=== PATIENT | female | born 1945 | race Caucasian/White ===

== ENCOUNTER → 2024-01-31 09:22 | Outpatient (REF) | payer MEDICARE, SELFPAY | LOC: RAD 09:22 | PROVIDERS: ATTENDING PHYSICIAN Orthopaedic Surgery; FAMILY PHYSICIAN Internal Medicine; OTHER PHYSICIAN Orthopaedic Surgery; REFERRING PHYSICIAN Internal Medicine Rheumatology | DX: M81.0 Age-related osteoporosis without current pathological fracture (principal); Z78.0 Asymptomatic menopausal state | CPT/HCPCS: 77080 ==

== ENCOUNTER 2025-01-20 08:04 | Inpatient (IN) | payer MEDICARE, SELFPAY ==
[2025-01-18 09:59] VITALS: BP 155/70
[2025-01-18 11:40] LABS: Hematocrit 41.1 % (37.0-47.0); Hemoglobin 13.3 g/dL (12.0-16.0); Mean Corp Hgb Conc. 32.4 g/dL (33.0-37.0); Mean Corpuscular Volume 80.3 fL (81.0-99.0); Nucleated Red Blood Cells % 0 %; Platelet Count 295 10^3/uL (130-400); Red Cell Dist. Width 14.3 % (11.5-14.5)
[2025-01-18] MEDS: DILAUDID 0.25 MG IV ×3 (11:44→22:24)
[2025-01-18] MEDS: TORADOL 15 MG IV (11:45)
[2025-01-18] MEDS: NSS 500 IV (11:45)
[2025-01-18 11:59] LABS: Blood Urea Nitrogen 16 mg/dl (7-17); Calcium 9.6 mg/dl (8.4-10.2); Carbon Dioxide 24 mmol/L (22-30); Chloride 107 mmol/L (98-107); Glucose 108 mg/dl (70-99); Potassium 3.4 mmol/L (3.5-5.1); Sodium 139 mmol/L (135-145); eGFR > 60.00
--- NOTE | 2025-01-18 12:02 | ED.GENMED ---
History of Present Illness
General
Chief Complaint: Musculo-Skeletal Complaint
Source: patient
Exam Limitations: none
Time Seen by Provider: 01/18/25 10:59
History of Present Illness
History of Present Illness:
80-year-old female complaining of right leg pain. Some low back pain and buttock pain. Has been going on for weeks. Has had epidurals in the past although none recently. Had her hip injected recently. No fever or chills. Significant pain with
ambulation and having difficulty ambulating. Also noted that she has had some incontinence of urine.
Past History
Past History
ED Past Medical History: Asthma, GERD, HTN, Valvular disease, Hypothyroidism, Psychiatric (Anxiety, depression, panic disorder), Other (Diverticulitis, diverticulosis, dysphagia, diarrhea, nausea vomiting, indigestion), Other (Neck pain, back pain)
and Other (Fractures, fibromyalgia)
ED Past Surgical History: Cholecystectomy and Gynecological (HYSTERECTOMY -1993 TUBILIGATION -1982 D&C -several last approx 1978 FALLOPIAN TUBE REMOVAL - 12/1978)
Social History
Tobacco: Non-smoker
Alcohol: None
Drug: None
Employment: Retired
Review of Systems
Review of Systems
All Other Systems: Not applicable
Respiratory: Reports no symptoms
Cardiac: Reports no symptoms
ABD/GI: Reports no symptoms
Phy Exam
Physical Exam
Physical Exam:
GENERAL: Alert and oriented in no apparent distress
EYE: Orbits normal.
NECK: Supple
CARDIAC: Regular rate and rhythm with midsystolic murmur
LUNGS: Clear breath sounds,normal
ABDOMEN: Soft, without focal tenderness or distention
NEUROLOGICAL: Alert and oriented , grossly non-focal. Good lower extremity strength. Plantar and dorsiflexion intact.
SKIN: Warm and dry, no rash or lesion, no discoloration, skin intact.
MUSCULOSKELETAL: No edema,no deformity.Good color. No clear pain with straight leg raising. No pain with hip rotation. She does hold the leg in a slightly flexed position at the knee. Some tenderness to the right buttock.
PSYCH: Normal and appropriate interaction.
Course
Orders/Labs/Results
Orders:
Orders
01/18/25 Breakfast
Regular
At Your Request: Full Participation
01/18/25 11:10
0.9% Sodium Chloride 500 ml [Nss] 500 ml IV BOLUS
HYDROmorphone [Dilaudid] 0.25 mg IV NOW STA
Ketorolac [Toradol] 15 mg IV NOW STA
01/18/25 11:28
Hip, Right 2-3 Views [CR Hip - RT w/wo Pel 2-3 Vw*] Urgent
Comment:
Reason For Exam: Nontraumatic pain
Include a pelvis x-ray?: No
01/18/25 11:31
Basic Metabolic Panel Urgent
CRP [C-Reactive Protein] Urgent
Complete Blood Count/With Diff Urgent
Erythrocyte Sed Rate Urgent
01/18/25 12:18
Lorazepam [Ativan] 1 mg PO NOW STA
01/18/25 12:19
MR Lumbar W/o & With Contrast Urgent
Comment:
Reason For Exam: Back pain/incontinence/elevated inflammatory marke
Recent pill cam endoscopy?: No
01/18/25 15:28
HYDROmorphone [Dilaudid] 0.25 mg IV NOW STA
01/18/25 15:51
Potassium Chloride 10% Elixir [KCl Elixir] 40 meq PO NOW STA
01/18/25 15:52
Urinalysis Reflex To Culture Routine
Date Specimen was Collected: 01/20/25
Time Specimen was Collected: 08:15
01/18/25 15:58
Admit/Transfer Patient As Directed
Co-Sign Provider:
Level of Care: Observation services
Assign to:: Medical/Surgical
Physician / Group: herminia
Diagnosis: right Le pain
01/18/25 15:59
PRN Pain Medication Management As Directed
May give lesser potent ordered pain med per pt: Yes
preference::
Protocol:: Medication orders for pain may be administered in a
manner that supports deferring to patient preference
when the pt is:
- Requesting an ordered lesser potent pain medication.
Least to most potent pain medications are defined
as: acetaminophen < NSAID < tramadol < opioids
(morphine, oxycodone, hydromorphone).
- Requesting a lesser dose of the same medication IF
ORDERED.
- Requesting a less intrusive route of administration
if both routes are prescribed by the provider (PO <
IV).
01/18/25 16:00
Code Status As Directed
Resuscitation Status: Full Code
01/18/25 16:15
Bladder Scan As Directed
Follow Bladder Retention/Intermittent Cath Algorithm?: Yes
PRN if no void in __ hours: 6
Frequency: Per Retention Algorithm
If Bladder Scan Result >: 400
then:: Straight cath
Straight Cath As Directed
Frequency: Per Retention Algorithm
Additional Instructions: straight cath as needed per acute urinary retention algorithm for 24 hrs
Additional Instructions: for bladder scan greater than 400 mL
01/18/25 17:31
Acetaminophen [Tylenol] 1,000 mg PO Q8H
Bisacodyl [Dulcolax] 10 mg RECTAL [id number] PRN
Docusate W/Senna [Senokot-S] 1 tablet PO BIDPRN PRN
HYDROmorphone [Dilaudid] 0.25 mg IV Q4HPRN PRN
Ketorolac [Toradol] 15 mg IV Q6HPRN PRN
Lidocaine [Lidocaine 4% Patch] 1 patch TOPICAL DAILY
Apply Lidocaine patch(s) to:: right thigh
Polyethylene Glycol Powder [Miralax] 17 grams PO DAILYPRN PRN
01/18/25 17:31
Activity As Directed
Activity Level: As Tolerated
Vital Signs As Directed
Frequency: Per unit guidelines
Ot Eval And Treat Routine
Pt Eval And Treat Routine
Activity Level: As Tolerated
DX Deep Vein Thrombosis Video Routine
01/18/25 18:00
Enoxaparin Sodium [Lovenox] 40 mg SC QPM
01/18/25 18:31
Albuterol [ProAIR HFA INHALER] 2 puff INH R QID PRN sob/wheezing sob/wheezing
01/18/25 18:39
Pt Screening Request from [facility] Routine
01/18/25 22:00
Gabapentin [Neurontin] 100 mg PO HS
01/19/25 07:00
Levothyroxine [Synthroid] 100 mcg PO DAILY@0700
01/19/25 08:00
Albuterol [ProAIR HFA INHALER] DOSE puff INH DAILY
Hydroxychloroquine [Plaquenil] 200 mg PO DAILY
Irbesartan [Avapro] 150 mg PO DAILY
Pantoprazole [Protonix] 40 mg PO DAILY
Prednisone [Deltasone] 10 mg PO DAILY
01/19/25 08:35
Basic Metabolic Panel IN AM
01/19/25 10:06
Complete Blood Count/No Diff Routine
01/19/25 11:00
Acetaminophen [Tylenol] 1,000 mg PO Q8H
01/19/25 11:30
Loperamide [Imodium] 2 mg PO Q6HPRN PRN
01/20/25 05:28
Basic Metabolic Panel IN AM
Complete Blood Count/No Diff IN AM
Abnormal Lab Results
01/18/25 01/19/25 01/19/25
11 08:35 10:06
WBC 11.1 H 10^3/uL
(4.8-10.8)
Hgb
Hct
MCV 80.3 L fL 80.8 L fL
(81.0-99.0) (81.0-99.0)
MCH 26.0 L pg 26.5 L pg
(27.0-31.0) (27.0-31.0)
MCHC 32.4 L g/dL 32.8 L g/dL
(33.0-37.0) (33.0-37.0)
Abs Immat Gran (auto) 0.1 H 10^3/uL
(0-0.05)
Absolute Neuts (auto) 8.5 H 10^3/uL
(1.4-6.5)
Absolute Monos (auto) 0.9 H 10^3/uL
(0.1-0.6)
Neutrophils % 76.6 H %
(42.2-75.2)
Lymphocytes % 13.9 L %
(20.5-51.1)
ESR 46 H mm/hour
(0-20)
Potassium 3.4 L mmol/L
(3.5-5.1)
Chloride 111 H mmol/L
(98-107)
Carbon Dioxide 20 L mmol/L
(22-30)
Glucose 108 H mg/dl
(70-99)
C-Reactive Protein 24.50 H mg/L
(0.0-10.00)
01/20/25
05:28
WBC
Hgb 11.0 L g/dL
(12.0-16.0)
Hct 33.1 L %
(37.0-47.0)
MCV 78.8 L fL
(81.0-99.0)
MCH 26.2 L pg
(27.0-31.0)
MCHC
Abs Immat Gran (auto)
Absolute Neuts (auto)
Absolute Monos (auto)
Neutrophils %
Lymphocytes %
ESR
Potassium
Chloride 109 H mmol/L
(98-107)
Carbon Dioxide
Glucose
C-Reactive Protein
01/20/25 05:28
01/20/25 05:28
Vital Signs
Initial and Last Documented VS:
Initial Vital Signs
Temp Pulse Resp BP Pulse Ox
98.4 F 84 18 155/70 97
01/18/25 09:59 01/18/25 09:59 01/18/25 09:59 01/18/25 09:59 01/18/25 09:59
Last Documented Vital Signs
Temp Pulse Resp BP Pulse Ox
97.8 F 86 16 169/80 95
01/20/25 15:00 01/20/25 15:00 01/20/25 15:00 01/20/25 15:00 01/20/25 15:00
MDM/Problems Addressed
Differential Diagnosis Includes:
I am more suspicious this is a lower back issue versus a hip issue. She has no pain with hip rotation. Doubt an infectious issue she has no fever or chills. No rash. With the incontinence would have some concern for cauda equina. MRI is ordered.
*Radiology
Radiology exam reviewed: radiology read reviewed (No evidence of discitis or osteomyelitis degenerative changes. Moderate central canal stenosis bilateral recess stenosis)
*Pulse Oximetry
SaO2: 97
Oxygen Mode of Delivery: Room air
Patient hypoxic: no (97)
*Critical Care Note
Total Time (30-74mins, 75-104mins- exclusive of procedures): Not Applicable
Update Note
Update Note:
Nothing to support an acute infectious issue. Highly doubt acute cauda equina syndrome requiring emergent surgery. Currently pain management. Patient does not feel she can handle the pain
ED Attending Note
-
Portions of this chart may have been created with voice recognition software.� Occasional wrong word or��sound alike� substitutions may have occurred due to the inherent limitations of voice recognition software.
Discharge Plan
Departure
Patient Disposition: Admit
Date of Disposition: 01/18/25
Time of Disposition: 15:29
Presentation/result/management discussed w/ accepting MD/DO: Hospitalist
Discharge Problem:
Intractable low back/hip pain
Interventions
Interventions:
*Risk Screen - Suicide Last Done: 01/18/25 18:16
*General Assessment Last Done: 01/18/25 09:59
*Neglect/Abuse Screening Last Done: 01/18/25 09:59
*ED- Fall Risk Assessment Last Done: 01/18/25 12:44
*ED COVID-19 Vaccine History Last Done: 01/18/25 17:59
*Nursing Disposition Last Done: 01/18/25 17:27
ED-Musculoskeletal Assessment Last Done: 01/18/25 12:43
Discharge Date and Time
Discharge Date/Time: 01/18/25 17:27
[2025-01-18 12:04] LABS: C-Reactive Protein 24.50 mg/L (0.0-10.00)
[2025-01-18] MEDS: ATIVAN 1 MG PO (12:21)
--- NOTE | 2025-01-18 15:28 | HPS.HSE ---
Addendum entered and electronically signed by Wilder Gamez MD 01/18/25 16:21:
This is an addendum to H&P written by Dasha Nguyen on 01/18/2025. �Patient seen and examined dependently with [facility] NURSE.
80-year-old female past medical history of lupus erythematosus, hypertension, COPD/asthma, spinal stenosis/chronic back pain receives epidural every 3 months, chronic urine incontinence, Klebsiella bacteremia, hypothyroidism, GERD presenting with
new right leg to foot pain for past 2 weeks. �On 01/06 got steroid injection in the right hip. �Worsening pain for few days, difficulty ambulating. �Orthopedics prescribed gabapentin/Tylenol with codeine.
Vital signs normal.
Labs show leukocytosis. �MRI lumbar spine shows no evidence of discitis or osteomyelitis. �Changes of degenerative disc disease greatest from L2-L3 and L5-S1. �At L3-L4 moderate overall central canal stenosis moderate to severe bilateral lateral
recess stenosis. �Multilevel foraminal narrowing greatest at right L4-L5.
Patient with right leg pain secondary to lumbar radiculopathy secondary to severe spinal stenosis. �Tylenol, lidocaine patch, Toradol, Dilaudid if needed. �Continue gabapentin. �PT OT.
Check urinalysis. �Bladder scan.
Original Note:
Family Physician
-
Family Physician: Rafael Lima
Chief Complaint
-
right LE pain
History of Present Illness
80-year-old female with past medical history for asthma, GERD, hypertension, hypothyroidism, anxiety, depression, panic disorder, diverticulitis, fibromyalgia, spinal stenosis presented to his with complaining of right leg pain. patient has chronic
back pain radiating to right Le for which she gets epidural every 3 months.she is due for epidural on Monday. for past two weeks, she noticed right LE pain down to her foot. she got steroid injection on 01/06/2025. she felt better for few days. four
days ago she started with right LE pain down to her foot. the pain is affecting her activities of daily living. she cannot put any pressure on her right foot. she is having trouble ambulating. she is having worsening of her incontinence of urine as
she is not able to get to the bathroom quickly due to the pain with ambulation. she is taking gabapentin and hydrocodone for past few days with no relief in her symptoms. patient sees orthopedics at at [place]. Patient denied any headache,
dizziness or syncope. Patient denied any fever, chills, chest pain, short of breath. Patient denied any abdominal pain, nausea, vomiting or diarrhea. Patient denies any dysuria hematuria
Medical History
Past Medical History
Past Medical History: Reports Other
Additional Past Medical History:
Hypertension
Fatty liver
Thyroid nodule
Hypothyroidism
Asthma
Cholelithiasis
Pancreatitis
Heart murmur
Arthritis
IBS
GERD
Carpal tunnel
COPD
Diverticulitis
Spinal stenosis
Lupus
Past Surgical History: Reports Other
Additional Past Surgical History:
Hysterectomy
Cholecystectomy
Chin implant
Cataract surgery
Social History
Tobacco: Former Smoker
Alcohol: None
Drug: None
Family History
Family History: Not pertinent
Allergies / Home Medications
Allergies reflects when Allergies were last updated in [employer].
Home Medications with original date entered in [employer]
Allergy/Medication List:
Allergies
Allergy/AdvReac Type Severity Reaction Status Date / Time
Cat/Feline Produc Allergy Unknown Verified 01/18/25 09:59
*RETIRED-02/14/12
(Cat/Feline Product
Derivatives)
cefadroxil Allergy 'BREATHING Verified 01/18/25 09:59
PROBLEMS'
codeine Allergy Unknown Verified 01/18/25 09:59
iodine Allergy Unknown Verified 01/18/25 09:59
megestrol acetate (From Allergy Shortness Verified 01/18/25 09:59
Megace) of Breath
Sulfa (Sulfonamide Allergy Unknown Verified 01/18/25 09:59
Antibiotics)
DOGS Allergy Unknown Uncoded 07/24/23 20:42
DUST, MOLD Allergy Unknown Uncoded 07/24/23 20:42
GENERIC TAMIFLU Allergy Unknown Uncoded 07/24/23 20:43
IV contrast dye Allergy Hives Uncoded 07/24/23 20:42
Home Medications
Vitamin D 1,000 mg PO DAILY 11/19/08
ibuprofen 200 mg tablet 400 mg PO PRN PRN fibromyalgia pain 11/19/08
levothyroxine 50 mcg tablet 50 mcg PO DAILY@0700 11/19/08
multivitamin with folic acid 400 mcg tablet (Tab-A-William) 2 tab PO DAILY 11/19/08
amoxicillin 875 mg-potassium clavulanate 125 mg tablet 1 tab PO Q12H #20 tabs 12/23/22
ondansetron 4 mg disintegrating tablet 4 mg PO Q8H PRN nausea and vomiting 2 days #7 tabs 12/23/22
Review of Systems
-
Constitutional: Reports No Symptoms
EENT: Reports No Symptoms
Respiratory: Reports No Symptoms
Cardiac: Reports No Symptoms
Abdomen/GI: Reports No Symptoms
: Reports No Symptoms
Musculoskeletal: Reports Other (Right lower extremity)
Skin: Reports No Symptoms
Neurological: Reports No Symptoms
Endocrine: Reports No Symptoms
Hematologic/Lymphatic: Reports No Symptoms
Psych: Reports No Symptoms
Physical Exam
Vital Signs
Vital Signs
Temp Pulse Resp BP Pulse Ox
98.4 F 84 18 155/70 97
01/18/25 09:59 01/18/25 09:59 01/18/25 09:59 01/18/25 09:59 01/18/25 12:04
Physical Exam
General: Well Developed, Well Nourished and No Apparent Distress
HEENT: NormoCephalic, Moist mucous membranes and Atraumatic
Respiratory: Clear
Cardiac: S1/S2 and Regular Rhythm; No Murmur or Rub
GI: Soft, Non Tender, Non Distended and Normal Bowel Sounds; No Organomegaly
Rectal: Deferred by Provider
Musculoskeletal: No Clubbing, No Cyanosis and No Edema
Skin: No Rash
Neuro: AO x 3 and Nonfocal/grossly intact
Psych: Calm
Laboratory Results
-
01/18/25 11:31
01/18/25 11:31
Data Reviewed
-
Diagnostic Radiology: Report Reviewed by me
Lab Data: Labs Reviewed by me
Impression/Plan
-
# Intractable back/hip pain
# History for central canal stenosis
- ESR 40, CRP 24.50
- MRI of lumbar spine with impression of No MR evidence for discitis or osteomyelitis.Changes of degenerative disc disease, greatest from L2-3 through L5-S1. At L3-4, moderate overall central canal stenosis with moderate to severe bilateral lateral
recess stenosis.Multilevel foraminal narrowing, which appears greatest on the right at L4-5, severe.
- Hip x-ray pending
- Lidocaine patch
- Tylenol
- Toradol PRN
-Dilaudid prn
- Gabapentin continued
-PT/OT consult
# Hypokalemia unclear cause/Hctz
- K 3.4
- Oral KCl
# Leukocytosis likely stress reaction
- WBCs 11.1
-Obtain urinalysis and bladder scan
# Hypothyroidism
- Levothyroxine continue
# History of lupus
- She is on prednisone
# Essential hypertension
- Irbesartan continued
# History for COPD/asthma
- Patient not in acute exacerbation
- Albuterol continued
#DVT prophylaxis
- Lovenox
#CODE STATUS
- Full code
[2025-01-18 16:00] VITALS: BP 148/84
[2025-01-18] MEDS: KCL ELIXIR 40 MEQ PO (16:49)
--- NOTE | 2025-01-18 17:02 | CM ---
CM reviewed chart and met with pt bedside in ED. Lives with her son, MICHELE and 2 grandchildren, 2 story home, 1 JUDIT from back.
Has first floor setup, BR and full BA.
Independent in ADLs and personal care, ambulates with 2 canes, ordered a RW.
No hx VN or SNF, has gone to OP therapy in past.
DYKES reviewed and signed.
PCP: Rafael Lima
Pharmacy: [address]
CM will continue to follow for any discharge planning needs.
[2025-01-18 17:29] VITALS: BP 165/71
[2025-01-18 19:00] VITALS: BMI 35.7
[2025-01-18] MEDS: TYLENOL 1000 MG PO (20:47)
[2025-01-18] MEDS: LOVENOX 40 MG SC (20:51)
[2025-01-18] MEDS: LIDOCAINE 4% PATCH 1 PATCH TOPICAL (20:51)
[2025-01-18] MEDS: NEURONTIN 100 MG PO (21:41)
[2025-01-18 23:30] VITALS: BP 148/66
[2025-01-19] MEDS: TYLENOL 1000 MG PO ×3 (02:58→18:21)
[2025-01-19] MEDS: DILAUDID 0.25 MG IV ×2 (05:31→17:37)
[2025-01-19] MEDS: SYNTHROID 100 MCG PO (06:18)
[2025-01-19 07:00] VITALS: BP 149/77
--- NOTE | 2025-01-19 08:28 | W.PN.HOSP.TC ---
Today's Communication/Plan
-
Pain control
PT/OT
Assessment / Plan
Assessment / Plan
80F w/ asthma, GERD, hypertension, hypothyroidism, anxiety, depression, panic disorder, diverticulitis, fibromyalgia, spinal stenosis p/w right leg pain, found to have DDD and lumbar stenosis.
# Intractable back/hip pain
# Spinal stenosis
- ESR 40, CRP 24.50
- MRI of lumbar spine with impression of No MR evidence for discitis or osteomyelitis.Changes of degenerative disc disease, greatest from L2-3 through L5-S1. At L3-4, moderate overall central canal stenosis with moderate to severe bilateral lateral
recess stenosis. Multilevel foraminal narrowing, which appears greatest on the right at L4-5, severe.
- Hip x-ray no fracture
- Lidocaine patch
- Tylenol
- Toradol PRN
-Dilaudid prn
- Gabapentin continued
-PT/OT consult
advised pt to f/u neurosurgery
pt has an outpt pain plant specialist who has been doing injections as well
# Hypokalemia -resolved with repletion
# Leukocytosis - resolved, likely stress reaction
# Hypothyroidism
- Levothyroxine
# History of lupus
-cont home prednisone
# Essential hypertension
- Irbesartan continued
Bp controlled
# History for COPD/asthma
- Patient not in acute exacerbation
- Albuterol continued
#DVT prophylaxis
- Lovenox
#CODE STATUS
- Full code
Anticipated Discharge: 24 - 48 hours
Subjective/Interval History
-
Date of Service: January 19, 2025
Patient still having pain in the right leg, denies any other issues to me
Objective Data
-
Labs:
Laboratory Results
01/19/25
06:00
WBC Pending
Hgb Pending
Hct Pending
Plt Count Pending
Sodium Pending
Potassium Pending
Chloride Pending
Carbon Dioxide Pending
BUN Pending
Creatinine Pending
Glucose Pending
Calcium Pending
Vital Signs:
Vital Signs
Temp Pulse Resp BP Pulse Ox
98.2 F 70 18 149/77 97
01/19/25 07:00 01/19/25 07:00 01/19/25 07:00 01/19/25 07:00 01/19/25 07:00
I&O
01/18/25 01/19/25 01/20/25
06:59 06:59 06:59
Intake Total 480 / 480
Balance 480 / 480
Review of Systems
-
All other systems: Reviewed and negative
Physical Exam
-
General: No Apparent Distress
HEENT: Moist Mucous Membranes, Anicteric and PERRLA
Respiratory: Clear to Auscultation; Negative Wheezes, Rales or Rhonchi
Cardiac: Regular Rhythm and S1/S2; Negative Murmur, Rub or Gallop
GI: Soft, Nontender, Nondistended and Normal Bowel Sounds
Musculoskeletal: No Edema
Skin: Warm and Dry; Negative Rash, Ulcers or Lesions
Neuro: Awake and AO x 3
Hematologic / Lymphatic: No Lymphadenopathy
Psych: Calm
Data Reviewed
-
MRI: Report Reviewed by me (IMPRESSION: No MR evidence for discitis or osteomyelitis. Changes of degenerative disc disease, greatest from L2-3 through L5-S1. At L3-4, moderate overall central canal stenosis with moderate to severe bilateral lateral
recess stenosis. Multilevel foraminal narrowing, which appears greatest on th)
Labs: Labs Reviewed by me
[2025-01-19 09:21] LABS: Blood Urea Nitrogen 17 mg/dl (7-17); Calcium 8.6 mg/dl (8.4-10.2); Carbon Dioxide 20 mmol/L (22-30); Chloride 111 mmol/L (98-107); Glucose 84 mg/dl (70-99); Potassium 4.3 mmol/L (3.5-5.1); Sodium 136 mmol/L (135-145); eGFR > 60.00
[2025-01-19] MEDS: LIDOCAINE 4% PATCH 1 PATCH TOPICAL (09:30)
[2025-01-19] MEDS: AVAPRO 150 MG PO (09:31)
[2025-01-19] MEDS: PLAQUENIL 200 MG PO (09:31)
[2025-01-19] MEDS: PROTONIX 40 MG PO (09:31)
[2025-01-19] MEDS: DELTASONE 10 MG PO (09:32)
[2025-01-19 10:00] VITALS: BP 183/84; PULSE 74
[2025-01-19] MEDS: TYLENOL PO (10:03)
[2025-01-19 10:48] LABS: Hematocrit 38.4 % (37.0-47.0); Hemoglobin 12.6 g/dL (12.0-16.0); Mean Corp Hgb Conc. 32.8 g/dL (33.0-37.0); Mean Corpuscular Volume 80.8 fL (81.0-99.0); Platelet Count 303 10^3/uL (130-400); Red Cell Dist. Width 14.2 % (11.5-14.5)
[2025-01-19] MEDS: IMODIUM 2 MG PO (12:45)
[2025-01-19 15:00] VITALS: BP 140/71
[2025-01-19] MEDS: LOVENOX 40 MG SC (18:21)
[2025-01-19] MEDS: TORADOL 15 MG IV (20:20)
[2025-01-19] MEDS: NEURONTIN 100 MG PO (21:26)
[2025-01-19 23:29] VITALS: BP 155/81
[2025-01-20] MEDS: TYLENOL 1000 MG PO ×3 (02:54→18:05)
[2025-01-20 05:39] LABS: Hematocrit 33.1 % (37.0-47.0); Hemoglobin 11.0 g/dL (12.0-16.0); Mean Corp Hgb Conc. 33.2 g/dL (33.0-37.0); Mean Corpuscular Volume 78.8 fL (81.0-99.0); Platelet Count 248 10^3/uL (130-400); Red Cell Dist. Width 14.2 % (11.5-14.5)
[2025-01-20] MEDS: SYNTHROID 100 MCG PO (06:14)
[2025-01-20 06:56] LABS: Blood Urea Nitrogen 17 mg/dl (7-17); Calcium 8.7 mg/dl (8.4-10.2); Carbon Dioxide 24 mmol/L (22-30); Chloride 109 mmol/L (98-107); Estimated Creatinine Clearance 71 ml/min; Glucose 88 mg/dl (70-99); Potassium 4.0 mmol/L (3.5-5.1); Sodium 137 mmol/L (135-145); eGFR > 60.00
[2025-01-20 07:00] VITALS: BP 164/79
[2025-01-20] MEDS: PLAQUENIL 200 MG PO (08:28)
[2025-01-20] MEDS: DELTASONE 10 MG PO (08:28)
[2025-01-20] MEDS: TORADOL 15 MG IV ×3 (08:28→21:28)
[2025-01-20] MEDS: AVAPRO 150 MG PO (08:28)
[2025-01-20] MEDS: PROTONIX 40 MG PO (08:28)
[2025-01-20] MEDS: LIDOCAINE 4% PATCH 1 PATCH TOPICAL (08:28)
[2025-01-20 08:34] LABS: Urine Character Clear (Clear)
[2025-01-20 08:43] LABS: Urine Squamous Cell 16-20 /LPF (Few); Urine Urothelial Cell 0-2 /LPF (FEW)
[2025-01-20 08:45] LABS: Urine Red Blood Cell 0-2 /HPF (0-2); Urine White Cell 0-2 /HPF (0-5)
--- NOTE | 2025-01-20 14:10 | W.PN.HOSP.TC ---
Today's Communication/Plan
-
Pain control
Assessment / Plan
Assessment / Plan
Physical exam:
General: Well Developed, Well Nourished and no Apparent Distress
HEENT: Normocephalic, Atraumatic and Moist Mucous Membranes
Respiratory: Clear to Auscultation; Negative Wheezes, Rales or Rhonchi
Cardiac: Regular Rhythm and S1/S2
GI: Soft, Nontender and Nondistended
Musculoskeletal: Decreased range of motion of back. No Clubbing, No Cyanosis and No Edema
Neuro: Awake, Alert and Oriented, no neurological deficits but mild weakness lower extremities
Psych: Calm
A/P:
80F w/ asthma, GERD, hypertension, hypothyroidism, anxiety, depression, panic disorder, diverticulitis, fibromyalgia, spinal stenosis p/w right leg pain, found to have DDD and lumbar stenosis.
# Intractable back/hip pain
# Spinal stenosis
- ESR 40, CRP 24.50
- MRI of lumbar spine with impression of No MR evidence for discitis or osteomyelitis.Changes of degenerative disc disease, greatest from L2-3 through L5-S1. At L3-4, moderate overall central canal stenosis with moderate to severe bilateral lateral
recess stenosis. Multilevel foraminal narrowing, which appears greatest on the right at L4-5, severe.
- Hip x-ray no fracture
- Lidocaine patch
- Tylenol
- Toradol PRN
-Dilaudid prn
- Gabapentin continued
-PT/OT consult
advised pt to f/u neurosurgery
pt has an outpt pain corporate real estate specialist who has been doing injections as well
- Will add oral oxycodone (she had been thinking about it as outpatient and initially was hesitant but now she is agreeable)
# Hypokalemia -resolved with repletion
# Leukocytosis - resolved, likely stress reaction
# Hypothyroidism
- Levothyroxine
# History of lupus
-cont home prednisone
# Essential hypertension
- Irbesartan continued
Bp controlled
# History for COPD/asthma
- Patient not in acute exacerbation
- Albuterol continued
#DVT prophylaxis
- Lovenox
#CODE STATUS
- Full code
Anticipated Discharge: 24 - 48 hours
Subjective/Interval History
-
Date of Service: January 20, 2025
Pain in the back it is more manageable, less weakness overall. Afebrile
Objective Data
-
Labs:
Laboratory Results
01/20/25
05:28
WBC 8.2
Hgb 11.0 L
Hct 33.1 L
Plt Count 248
Sodium 137
Potassium 4.0
Chloride 109 H
Carbon Dioxide 24
BUN 17
Creatinine 0.7
Glucose 88
Calcium 8.7
Vital Signs:
Vital Signs
Temp Pulse Resp BP Pulse Ox
97.6 F 72 16 164/79 96
01/20/25 07:00 01/20/25 08:28 01/20/25 07:00 01/20/25 08:28 01/20/25 07:00
I&O
01/19/25 01/20/25 01/21/25
06:59 06:59 06:59
Intake Total 480 / 480 1220 / 1220
Balance 480 / 480 1220 / 1220
[2025-01-20 15:00] VITALS: BP 169/80
--- NOTE | 2025-01-20 16:04 | CM ---
CM following for discharge planning. Pt lives with her son, MICHELE and 2 grandchildren in a 2 story home with one entry step from back of the house. She reports independence in ADLs and personal care at baseline; with her current level of pain she
has been struggling, was using 1 cane, but feels more comfortable with 2 canes and also ordered a RW.
Home Care recommended by PT and OT. Will discuss this with patient and son in AM.
Pt had a level of are change from OBS to IP level of care. IMM provided to patient and signed; placed in chart.
--- NOTE | 2025-01-20 16:14 | CM ---
Addendum entered by Marjorie Xie 01/21/25 14:52:
[facility] Report: [phone]
[facility]
Addendum entered by Marjorie Xie 01/21/25 13:54:
CM spoke with pt, her friend who was visiting, and pt's daughter. Family is traveling to [place] and pt would be home alone which is not safe at this time. SNF discussed and Khloe has selected [facility]. Bed is available for today.
Plan: Discharge to [facility] today.
Original Note:
CM following for discharge planning. PT and OT are recommending home care services at discharge to help with mobility and pain reduction.
CM to follow up with patient in AM to discuss VN.
[2025-01-20] MEDS: LOVENOX 40 MG SC (18:05)
[2025-01-20] MEDS: NEURONTIN 100 MG PO (21:27)
[2025-01-20 23:00] VITALS: BP 160/69
[2025-01-21] MEDS: DILAUDID 0.25 MG IV (01:21)
[2025-01-21] MEDS: TYLENOL PO (03:38)
[2025-01-21 05:10] VITALS: BMI 36.0
[2025-01-21] MEDS: TORADOL 15 MG IV ×2 (05:25→12:26)
[2025-01-21] MEDS: SYNTHROID 100 MCG PO (06:22)
[2025-01-21 08:11] VITALS: BP 152/67
--- NOTE | 2025-01-21 08:42 | W.PN.HOSP.TC ---
Today's Communication/Plan
-
Pain control. Discharge planning
Assessment / Plan
Assessment / Plan
Physical exam:
General: Well Developed, Well Nourished and no Apparent Distress
HEENT: Normocephalic, Atraumatic and Moist Mucous Membranes
Respiratory: Clear to Auscultation; Negative Wheezes, Rales or Rhonchi
Cardiac: Regular Rhythm and S1/S2
GI: Soft, Nontender and Nondistended
Musculoskeletal: Decreased range of motion of back. No Clubbing, No Cyanosis and No Edema
Neuro: Awake, Alert and Oriented, no neurological deficits but mild weakness lower extremities
Psych: Calm
A/P:
80F w/ asthma, GERD, hypertension, hypothyroidism, anxiety, depression, panic disorder, diverticulitis, fibromyalgia, spinal stenosis p/w right leg pain, found to have DDD and lumbar stenosis.
# Intractable back/hip pain
# Spinal stenosis
- ESR 40, CRP 24.50
- MRI of lumbar spine with impression of No MR evidence for discitis or osteomyelitis.Changes of degenerative disc disease, greatest from L2-3 through L5-S1. At L3-4, moderate overall central canal stenosis with moderate to severe bilateral lateral
recess stenosis. Multilevel foraminal narrowing, which appears greatest on the right at L4-5, severe.
- Hip x-ray no fracture
- Lidocaine patch
- Tylenol
- Toradol PRN
-Dilaudid prn
- Gabapentin continued
-PT/OT consult
advised pt to f/u neurosurgery
pt has an outpt pain pc support specialist who has been doing injections as well
- Added oral oxycodone (she had been thinking about it as outpatient and initially was hesitant but now she is agreeable)
- Discussed with friend at bedside
- Medically cleared for discharge-awaiting special education case manager for discharge disposition.
# Hypokalemia -resolved with repletion
# Leukocytosis - resolved, likely stress reaction
# Hypothyroidism
- Levothyroxine
# History of lupus
-cont home prednisone
# Essential hypertension
- Irbesartan continued
Bp controlled
# History for COPD/asthma
- Patient not in acute exacerbation
- Albuterol continued
#DVT prophylaxis
- Lovenox
#CODE STATUS
- Full code
Anticipated Discharge: Today
Subjective/Interval History
-
Date of Service: January 21, 2025
Patient pain still ongoing but improved. Afebrile
Objective Data
-
Vital Signs:
Vital Signs
Temp Pulse Resp BP Pulse Ox
97.5 F 67 16 152/67 96
01/21/25 08:11 01/21/25 08:11 01/21/25 08:11 01/21/25 08:11 01/21/25 08:11
I&O
01/20/25 01/21/25 01/22/25
06:59 06:59 06:59
Intake Total 1220 / 1220 600 / 600
Balance 1220 / 1220 600 / 600
[2025-01-21] MEDS: LIDOCAINE 4% PATCH 1 PATCH TOPICAL (09:02)
[2025-01-21] MEDS: PLAQUENIL 200 MG PO (09:02)
[2025-01-21] MEDS: DELTASONE 10 MG PO (09:03)
[2025-01-21] MEDS: PROTONIX 40 MG PO (09:03)
[2025-01-21] MEDS: AVAPRO 150 MG PO (09:03)
[2025-01-21] MEDS: TYLENOL 1000 MG PO (10:27)
--- NOTE | 2025-01-21 13:06 | W.DCSUMMARY ---
Discharge Summary
Discharge Data
Date of Admission: 01/20/25
Date of Discharge: 01/21/25
-
Pending Results: No
Hospital Course
Patient is 80 years old female with history of lupus, hypertension, COPD, chronic back pain with epidural every so often as outpatient, came into the hospital with acute on chronic back pain. Patient was started on pain regimen. MRI of the lumbar
spine revealed evidence of moderate central canal stenosis with moderate to severe bilateral lateral recess stenosis at L3-L4 and DJD of the disc of levels of L2 and L3 and through L5-S1. She participated with physical therapy and Occupational
Therapy during his hospital stay. Patient was able to manage with pain medications but will continue rehabilitation at a facility upon discharge. She will also require follow-up with her pain specialist as outpatient. Otherwise, patient
hemodynamically stable and she will be discharged today.
Discharge Plan
-
Patient Disposition: Residential/SNF
Discharge Diagnosis/Procedures: Intractable back pain due to central canal stenosis and degenerative disc disease.
Diet: Low Cholesterol
Activity: As tolerated
Blood Work: Please PCP to order CBC, BMP within 1 week
Referrals:
Rafael Lima MD [Family Provider, Internal Medicine] - in less than 1 week
Prescriptions:
New
lidocaine 4 % Adhesive Patch,Medicated
1 patch topical DAILY Qty: 0 0RF
polyethylene glycol 3350 17 gram Powder In Packet
17 g PO DAILY Qty: 14 0RF
acetaminophen [Tylenol Extra Strength] 500 mg Tablet
1,000 mg PO Q8H Qty: 0 0RF
oxycodone 5 mg capsule
5 mg PO Q4H PRN (Reason: moderate to severe pain) Qty: 4 0RF
Continued
pantoprazole 40 mg tablet,delayed release (DR/EC)
40 mg PO DAILY
hydrochlorothiazide 25 mg tablet
25 mg PO DAILY PRN (Reason: edema)
gabapentin 100 mg capsule
100 mg PO HS
irbesartan 150 mg tablet
150 mg PO DAILY
albuterol sulfate 90 mcg/actuation HFA aerosol inhaler
90 mcg INHALATION Q4HPRN PRN (Reason: sob)
polyvinyl alcohol [Artificial Tears (polyvin alc)] 1.4 % Drops
1 drp OPHTHALMIC (EYE) DAILYPRN PRN (Reason: dry eyes)
prednisone 5 mg tablet
10 mg PO DAILY
levothyroxine [Synthroid] 100 mcg tablet
100 mcg PO DAILY@06
azelastine 137 mcg (0.1 %) spray,non-aerosol
1 spray INTRANASAL DAILYPRN PRN (Reason: allergies)
hydroxychloroquine 200 mg tablet
200 mg PO DAILY
Discontinued
acetaminophen-codeine 300-30 mg tablet
1 tab PO Q6H PRN (Reason: sever pain)
Discharge Orders:
Discharge Patient (As Directed); Ordered 01/21/25
Ordered By: Barron Garnett
Discharge Date and Time
Print Language: [id number]
[2025-01-21 14:58] VITALS: BP 165/98
[2025-01-21 15:51] VITALS: BP 179/79
[2025-01-21] MEDS: IMODIUM 2 MG PO (18:01)
== END 2025-01-21 18:11 | DRG 552 ==
LOC: 3 WEST ACU 08:04
PROVIDERS: Internal Medicine; Registered Nurse; ADMITTING PHYSICIAN Hospitalist; ATTENDING PHYSICIAN Hospitalist; EMERGENCY PHYSICIAN Emergency Medicine; FAMILY PHYSICIAN Internal Medicine
DX: M51.16 Intervertebral disc disorders with radiculopathy, lumbar region (principal); M51.17 Intervertebral disc disorders with radiculopathy, lumbosacral region; M48.061 Spinal stenosis, lumbar region without neurogenic claudication; I10 Essential (primary) hypertension; E03.9 Hypothyroidism, unspecified; E04.1 Nontoxic single thyroid nodule; E87.6 Hypokalemia; F32.A Depression, unspecified; F41.9 Anxiety disorder, unspecified; F43.9 Reaction to severe stress, unspecified; J44.89 Other specified chronic obstructive pulmonary disease; K21.9 Gastro-esophageal reflux disease without esophagitis; K76.0 Fatty (change of) liver, not elsewhere classified; L93.0 Discoid lupus erythematosus; D72.829 Elevated white blood cell count, unspecified; Z79.890 Hormone replacement therapy; Z79.899 Other long term (current) drug therapy; Z87.891 Personal history of nicotine dependence
CPT/HCPCS: 72158; 73502; 80048; 81003; 81015; 85025; 85027; 85652; 86140; 96361; 96374; 96375; 97162; 97166; 97530; 99285; A9575